=== PATIENT | male | born 1990 | race Caucasian/White ===

== ENCOUNTER 2018-06-28 20:34 | Emergency (ER) | payer OTHER ==
[2018-06-28] MEDS ORDERED: ALPRAZolam 1 MG TAB PO STA (20:59)
--- NOTE | 2018-06-28 21:06 | ED ---
General Adult HPI - General Source: patient Mode of arrival: ambulatory Limitations: no limitations <Oumar Ramachandran - Last Filed: 06/28/18 21:05> <Jorge Allen - Last Filed: 06/29/18 09:20> - General Chief complaint: Psychiatric Symptoms Stated complaint: Psych eval - History of Present Illness Initial comments: Dictation was produced using [employer] dictation software. please excuse any grammatical, word or spelling errors. Chief Complaint: 20-year-old male with past medical history of bipolar rahel presents with flight of ideas. History of Present Illness: Patient is a 28-year-old male past medical history of bipolar rahel presents with increased activity, flight of ideas and manic thoughts. Patient takes lithium regularly and Seroquel for control of his psychiatric disease. He states that today he's been feeling more pressure recently. Patient has been having thoughts of jerking wildly. Denies any visual or to hallucinations. No homicidal or suicidal ideation. Patient said he was drinking alcohol today. The ROS documented in this emergency department record has been reviewed and confirmed by me. Those systems with pertinent positive or negative responses have been documented in the HPI. All other systems are other negative and/or noncontributory. (Oumar Ramachandran) - Related Data Allergies Allergy/AdvReac Type Severity Reaction Status Date / Time No Known Allergies Allergy Verified 06/29/18 07:18 Review of Systems ROS Other: All systems not noted in ROS Statement are negative. <Oumar Ramachandran - Last Filed: 06/28/18 21:05> ROS Other: All systems not noted in ROS Statement are negative. <Jorge Allen - Last Filed: 06/29/18 09:20> ROS Statement: Those systems with pertinent positive or pertinent negative responses have been documented in the HPI. Past Medical History Past Medical History: No Reported History History of Any Multi-Drug Resistant Organisms: None Reported Past Surgical History: Appendectomy Additional Past Surgical History / Comment(s): lypoma removal Past Psychological History: Bipolar Smoking Status: Current every day smoker Past Alcohol Use History: Occasional Past Drug Use History: Marijuana <Oumar Ramachandran - Last Filed: 06/28/18 21:05> General Exam Limitations: no limitations <Oumar Ramachandran - Last Filed: 06/28/18 21:05> <Jorge Allen - Last Filed: 06/29/18 09:20> - General Exam Comments Initial Comments: PHYSICAL EXAM: General Impression: Alert and oriented x3, not in acute distress HEENT: Normocephalic atraumatic, extra-ocular movements intact, pupils equal and reactive to light bilaterally, mucous membranes moist. Cardiovascular: Heart regular rate and rhythm, S1&S2 audible, no murmurs, rubs or gallops Chest: Lungs clear to auscultation bilaterally, no rhonchi, no wheeze, no rales Abdomen: Bowel sounds present, abdomen soft, non-tender, non-distended, no organomegaly Musculoskeletal: Pulses present and equal in all extremities, no peripheral edema Motor: Power 5/5 bilaterally, no focal deficits noted Neurological: CN II-XII grossly intact, no focal motor or sensory deficits noted Skin: Intact with no visualized rashes Psych: Pressured speech, manic (Oumar Ramachandran) Course <Oumar Ramachandran - Last Filed: 06/28/18 21:05> <Jorge Allen - Last Filed: 06/29/18 09:20> Vital Signs 06/28/18 06/29/18 20:38 07:03 Temperature 98.2 F 98.3 F Pulse Rate 117 H 71 Respiratory 20 18 Rate Blood Pressure 158/87 119/60 O2 Sat by Pulse 98 97 Oximetry - Reevaluation(s) Reevaluation #1: 06/29/18 09:17 I did reevaluate the patient is awake alert oriented 3 he is not homicidal or suicidal. I did interview the patient and discussed the findings with him. I also did discuss the case with Dr. Bates from the [facility] in [place]. She also did discuss the findings interview the patient over the phone the patient does have an adequate supply of medication he has probably not been taking his lithium as directed he will be discharged and keep his follow-up appointment on the with his psychiatrist. Patient is in agreement with this. He does plan the avoid alcohol and take medication as directed. He will be discharged (Jorge Allen) Medical Decision Making <Oumar Ramachandran - Last Filed: 06/28/18 21:05> - Lab Data Result diagrams: 06/28/18 21:17 10/07/18 21:17 <Jorge Allen - Last Filed: 06/29/18 09:20> - Medical Decision Making ED course: 20-year-old male with past medical history of psychiatric disease presents with manic thoughts and grandiose ideation. On arrival shows heart rate of 117. Patient denies any drug use. Not suicidal homicidal. No visualized or hallucination. Patient appears to be showing signs of psychosis. Patient will need EPS evaluation. Patient denies any drug use. Presentation not consistent with toxidrome. No neuro deficits. (Oumar Ramachandran) - Lab Data Lab Results 06/28/18 06/28/18 06/28/18 Range/Units 21:17 21:17 21:17 WBC 8.6 (3.8-10.6) k/uL RBC 5.44 (4.30-5.90) m/uL Hgb 15.1 (13.0-17.5) gm/dL Hct 46.6 (39.0-53.0) % MCV 85.5 (80.0-100.0) fL MCH 27.8 (25.0-35.0) pg MCHC 32.5 (31.0-37.0) g/dL RDW 13.0 (11.5-15.5) % Plt Count 240 (150-450) k/uL Neutrophils % 52 % Lymphocytes % 34 % Monocytes % 7 % Eosinophils % 4 % Basophils % 1 % Neutrophils # 4.5 (1.3-7.7) k/uL Lymphocytes # 2.9 (1.0-4.8) k/uL Monocytes # 0.6 (0-1.0) k/uL Eosinophils # 0.4 (0-0.7) k/uL Basophils # 0.1 (0-0.2) k/uL Sodium 145 (137-145) mmol/L Potassium 4.4 (3.5-5.1) mmol/L Chloride 108 H (98-107) mmol/L Carbon Dioxide 27 (22-30) mmol/L Anion Gap 10 mmol/L BUN 10 (9-20) mg/dL Creatinine 0.91 (0.66-1.25) mg/dL Est GFR (CKD-EPI)AfAm >90 (>60 ml/min/1.73 sqM) Est GFR (CKD-EPI)NonAf >90 (>60 ml/min/1.73 sqM) Glucose 76 (74-99) mg/dL Calcium 9.4 (8.4-10.2) mg/dL TSH 2.260 (0.465-4.680) mIU/L Urine Color Urine Appearance (Clear) Urine pH (5.0-8.0) Ur Specific [place] (1.001-1.035) Urine Protein (Negative) Urine Glucose (UA) (Negative) Urine Ketones (Negative) Urine Blood (Negative) Urine Nitrite (Negative) Urine Bilirubin (Negative) Urine Urobilinogen (<2.0) mg/dL Ur Leukocyte Esterase (Negative) Urine Opiates Screen (NotDetected) Ur Oxycodone Screen (NotDetected) Urine Methadone Screen (NotDetected) Ur Propoxyphene Screen (NotDetected) Ur Barbiturates Screen (NotDetected) U Tricyclic Antidepress (NotDetected) Ur Phencyclidine Scrn (NotDetected) Ur Amphetamines Screen (NotDetected) U Methamphetamines Scrn (NotDetected) U Benzodiazepines Scrn (NotDetected) [place] <0.2 mmol/L Urine Cocaine Screen (NotDetected) U Marijuana (THC) Screen (NotDetected) Serum Alcohol mg/dL 06/28/18 06/28/18 06/29/18 Range/Units 22:20 22:22 06:45 WBC (3.8-10.6) k/uL RBC (4.30-5.90) m/uL Hgb (13.0-17.5) gm/dL Hct (39.0-53.0) % MCV (80.0-100.0) fL MCH (25.0-35.0) pg MCHC (31.0-37.0) g/dL RDW (11.5-15.5) % Plt Count (150-450) k/uL Neutrophils % % Lymphocytes % % Monocytes % % Eosinophils % % Basophils % % Neutrophils # (1.3-7.7) k/uL Lymphocytes # (1.0-4.8) k/uL Monocytes # (0-1.0) k/uL Eosinophils # (0-0.7) k/uL Basophils # (0-0.2) k/uL Sodium (137-145) mmol/L Potassium (3.5-5.1) mmol/L Chloride (98-107) mmol/L Carbon Dioxide (22-30) mmol/L Anion Gap mmol/L BUN (9-20) mg/dL Creatinine (0.66-1.25) mg/dL Est GFR (CKD-EPI)AfAm (>60 ml/min/1.73 sqM) Est GFR (CKD-EPI)NonAf (>60 ml/min/1.73 sqM) Glucose (74-99) mg/dL Calcium (8.4-10.2) mg/dL TSH (0.465-4.680) mIU/L Urine Color Light Yellow Urine Appearance Clear (Clear) Urine pH 5.5 (5.0-8.0) Ur Specific [place] 1.008 (1.001-1.035) Urine Protein Negative (Negative) Urine Glucose (UA) Negative (Negative) Urine Ketones Negative (Negative) Urine Blood Negative (Negative) Urine Nitrite Negative (Negative) Urine Bilirubin Negative (Negative) Urine Urobilinogen <2.0 (<2.0) mg/dL Ur Leukocyte Esterase Negative (Negative) Urine Opiates Screen Not Detected (NotDetected) Ur Oxycodone Screen Not Detected (NotDetected) Urine Methadone Screen Not Detected (NotDetected) Ur Propoxyphene Screen Not Detected (NotDetected) Ur Barbiturates Screen Not Detected (NotDetected) U Tricyclic Antidepress Not Detected (NotDetected) Ur Phencyclidine Scrn Not Detected (NotDetected) Ur Amphetamines Screen Not Detected (NotDetected) U Methamphetamines Scrn Not Detected (NotDetected) U Benzodiazepines Scrn Not Detected (NotDetected) [place] mmol/L Urine Cocaine Screen Not Detected (NotDetected) U Marijuana (THC) Screen Not Detected (NotDetected) Serum Alcohol <10 mg/dL Disposition <Oumar Ramachandran - Last Filed: 06/28/18 21:05> Is patient prescribed a controlled substance at d/c from ED?: No <Jorge Allen - Last Filed: 06/29/18 09:20> Clinical Impression: Rahel (monopolar) single episode or unspecified, Bipolar disorder Disposition: HOME SELF-CARE Condition: Good Instructions: Bipolar Disorder (ED) Additional Instructions: Keep your follow-up appointment at the 18th of this month. Return if needed. Avoid alcohol. Figure medications as directed. Referrals: [facility] [Primary Care Provider] - 1-2 days
[2018-06-28 21:37] LABS: Basophils # (A) 0.1 k/uL (0-0.2); Basophils % (A) 1 %; Eosinophils # (A) 0.4 k/uL (0-0.7); Eosinophils % (A) 4 %; HCT 46.6 % (39.0-53.0); HGB 15.1 gm/dL (13.0-17.5); Lymphocytes # (A) 2.9 k/uL (1.0-4.8); Lymphocytes % (A) 34 %; MCH 27.8 pg (25.0-35.0); MCHC 32.5 g/dL (31.0-37.0); MCV 85.5 fL (80.0-100.0); Mean Platelet Volume 7.3; Monocytes # (A) 0.6 k/uL (0-1.0); Monocytes % (A) 7 %; Neutrophils # (A) 4.5 k/uL (1.3-7.7); Neutrophils % (A) 52 %; Platelet Count 240 k/uL (150-450); RBC 5.44 m/uL (4.30-5.90); WBC 8.6 k/uL (3.8-10.6)
[2018-06-28 21:46] LABS: Anion Gap 10 mmol/L; Blood Urea Nitrogen 10 mg/dL (9-20); Calcium 9.4 mg/dL (8.4-10.2); Carbon Dioxide 27 mmol/L (22-30); Chloride 108 mmol/L (98-107); Glucose 76 mg/dL (74-99); Potassium 4.4 mmol/L (3.5-5.1); Sodium 145 mmol/L (137-145)
[2018-06-28 22:50] LABS: Amphetamine Screen,Urine Not Detected (NotDetected); Barbiturate Screen,Urine Not Detected (NotDetected); Benzodiazepines Screen,Urine Not Detected (NotDetected); Cocaine Screen,Urine Not Detected (NotDetected); Methadone Screen, Urine Not Detected (NotDetected); Opiate Screen,Urine Not Detected (NotDetected); Oxycodone Screen, Urine Not Detected (NotDetected); Phencyclidine Screen,Urine Not Detected (NotDetected); Tricyclic Antidepressant,Urine Not Detected (NotDetected); Urn Cannabinoid Scrn Not Detected (NotDetected)
[2018-06-29 02:19] LABS: Appearance,Urine Clear (Clear); Bilirubin,Urine Negative (Negative); Blood,Urine Negative (Negative); Color,Urine Light Yellow; Glucose,Urine (UA) Negative (Negative); Ketones,Urine Negative (Negative); Leukocyte Esterase,Urine Negative (Negative); Nitrite,Urine Negative (Negative); PH, Urine 5.5 (5.0-8.0); Protein,Urine Negative (Negative); Specific Gravity,Urine 1.008 (1.001-1.035); Urobilinogen,Urine <2.0 mg/dL (<2.0)
[2018-06-29 02:33] LABS: Lithium <0.2 mmol/L
[2018-06-29 07:05] VITALS: PULSE 71
[2018-06-29 10:00] VITALS: BP 116/62; RESP 17; TEMP 98.7
== END 2018-06-29 09:59 | disposition home or self-care (01) ==
LOC: EC 20:34
DX: F30.2 Manic episode, severe with psychotic symptoms (principal); F17.200 Nicotine dependence, unspecified, uncomplicated
CPT/HCPCS: 36415; 80048; 80178; 80306; 80320; 81003; 82075; 84443; 85025; 93005; 99284

== ENCOUNTER 2021-10-21 13:44 | Emergency (ER) | payer OTHER ==
--- NOTE | 2021-10-21 14:27 | ED ---
Psych HPI - General Chief Complaint: Psychiatric Symptoms Stated Complaint: Mental Health Time Seen by Provider: 10/21/21 13:58 Source: patient, RN notes reviewed Mode of arrival: ambulatory Limitations: no limitations - History of Present Illness Initial Comments: 31-year-old male presents emergency Department with chief complaint of severe depression, suicidal ideation. Patient states last 2 weeks been having worsening symptoms. He does have known bipolar disorder which is on multiple medications for. Patient does see psychiatrist, therapist. Patient states she's been waking up every morning and he states his first day is to harm himself. He states she's attempted suicide in the past. Patient has no physical legs. Patient states has changed recently as he is attempting to go to school when he states is not that stressed. - Related Data Home Medications Medication Instructions Recorded Confirmed [place] Carbonate 300 mg PO TID 06/29/18 06/29/18 Magnesium 200 mg PO DAILY 06/29/18 06/29/18 Melatonin 1 mg PO HS 06/29/18 06/29/18 Propranolol [Inderal] 20 mg PO TID PRN 06/29/18 06/29/18 Zinc 50 mg PO DAILY 06/29/18 06/29/18 buPROPion HCL [Wellbutrin XL] 300 mg PO DAILY 06/29/18 06/29/18 Allergies Allergy/AdvReac Type Severity Reaction Status Date / Time No Known Allergies Allergy Verified 10/21/21 13:58 Review of Systems ROS Statement: Those systems with pertinent positive or pertinent negative responses have been documented in the HPI. ROS Other: All systems not noted in ROS Statement are negative. Past Medical History Past Medical History: No Reported History History of Any Multi-Drug Resistant Organisms: None Reported Past Surgical History: Appendectomy Additional Past Surgical History / Comment(s): lypoma removal Past Psychological History: Bipolar Smoking Status: Vaper Past Alcohol Use History: Occasional Past Drug Use History: Marijuana General Exam Limitations: no limitations General appearance: alert, in no apparent distress Head exam: Present: atraumatic, normocephalic, normal inspection Eye exam: Present: normal appearance, PERRL, EOMI. Absent: scleral icterus, conjunctival injection, periorbital swelling Neck exam: Present: normal inspection, full ROM. Absent: tenderness, meningismus, lymphadenopathy Respiratory exam: Present: normal lung sounds bilaterally. Absent: respiratory distress, wheezes, rales, rhonchi, stridor Cardiovascular Exam: Present: regular rate, normal rhythm, normal heart sounds. Absent: systolic murmur, diastolic murmur, rubs, gallop, clicks GI/Abdominal exam: Present: soft, normal bowel sounds. Absent: distended, tenderness, guarding, rebound, rigid Neurological exam: Present: alert, oriented X3 Psychiatric exam: Present: depressed, suicidal ideation Course Vital Signs 10/21/21 13:54 Temperature 98 F Pulse Rate 75 Respiratory 16 Rate Blood Pressure 150/86 O2 Sat by Pulse 96 Oximetry Medical Decision Making - Medical Decision Making Patient was evaluated by psychiatric services. Patient will be transferred to [place]. Disposition Clinical Impression: Depression, Suicidal ideation Disposition: TRANSFER TO PSYCH HOSP/UNIT Condition: Stable Referrals: None,Stated [REFERRING] - 1-2 days
[2021-10-21 15:25] LABS: Basophils # (A) 0.1 k/uL (0-0.2); Basophils % (A) 1 %; Eosinophils # (A) 0.4 k/uL (0-0.7); Eosinophils % (A) 4 %; HCT 45.3 % (39.0-53.0); HGB 15.7 gm/dL (13.0-17.5); Lymphocytes % (A) 22 %; MCH 29.5 pg (25.0-35.0); MCHC 34.6 g/dL (31.0-37.0); MCV 85.3 fL (80.0-100.0); Monocytes # (A) 0.5 k/uL (0-1.0); Monocytes % (A) 5 %; Neutrophils # (A) 6.1 k/uL (1.3-7.7); Neutrophils % (A) 66 %; Platelet Count 236 k/uL (150-450); RBC 5.31 m/uL (4.30-5.90); RDW 12.8 % (11.5-15.5); WBC 9.1 k/uL (3.8-10.6)
[2021-10-21 15:38] LABS: Appearance,Urine Clear (Clear); Bilirubin,Urine Negative (Negative); Blood,Urine Negative (Negative); Color,Urine Light Yellow; Glucose,Urine (UA) Negative (Negative); Ketones,Urine Negative (Negative); Leukocyte Esterase,Urine Small (Negative); Nitrite,Urine Negative (Negative); Protein,Urine Negative (Negative); RBC,Urine <1 /hpf (0-5); Specific Gravity,Urine 1.007 (1.001-1.035); Squamous Epithelial Cell,Urine <1 /hpf (0-4); Urobilinogen,Urine <2.0 mg/dL (<2.0); WBC,Urine 3 /hpf (0-5)
[2021-10-21 15:42] LABS: ALT 23 U/L (4-49); AST 26 U/L (17-59); African American GFR (CKD) >90 (>60 ml/min/1.73 sqM); Albumin 4.7 g/dL (3.5-5.0); Alkaline Phosphatase 67 U/L (38-126); Anion Gap 7 mmol/L; Blood Urea Nitrogen 12 mg/dL (9-20); Calcium 9.8 mg/dL (8.4-10.2); Carbon Dioxide 24 mmol/L (22-30); Chloride 106 mmol/L (98-107); Glucose 86 mg/dL (74-99); Non-African American GFR(CKD) >90 (>60 ml/min/1.73 sqM); Potassium 4.1 mmol/L (3.5-5.1); Sodium 137 mmol/L (137-145); Total Bilirubin 0.9 mg/dL (0.2-1.3); Total Protein 7.6 g/dL (6.3-8.2)
[2021-10-21 15:55] LABS: Lithium 0.7 mmol/L
[2021-10-21 16:02] LABS: Amphetamine Screen,Urine Not Detected (NotDetected); Barbiturate Screen,Urine Not Detected (NotDetected); Benzodiazepines Screen,Urine Not Detected (NotDetected); Cocaine Screen,Urine Not Detected (NotDetected); Methadone Screen, Urine Not Detected (NotDetected); Opiate Screen,Urine Not Detected (NotDetected); Oxycodone Screen, Urine Not Detected (NotDetected); Phencyclidine Screen,Urine Not Detected (NotDetected); Tricyclic Antidepressant,Urine Not Detected (NotDetected); Urn Cannabinoid Scrn Detected (NotDetected)
[2021-10-21] MEDS: buPROPion 100 MG TAB PO SCH (20:11)
[2021-10-21] MEDS ORDERED: OLANZapine 10 MG TAB PO SCH (21:00)
[2021-10-21] MEDS ORDERED: LITHIUM CARBONATE 300 MG CAP PO SCH (21:00)
[2021-10-22 06:53] VITALS: TEMP 97.8
[2021-10-22] MEDS: buPROPion 100 MG TAB PO SCH (08:50)
[2021-10-22 08:59] VITALS: BP 133/79; PULSE 76; RESP 18
[2021-10-22] MEDS ORDERED: LITHIUM CARBONATE 300 MG CAP PO SCH (09:00)
== END 2021-10-22 09:00 ==
LOC: EC 13:44
DX: F32.A Depression, unspecified (principal); R45.851 Suicidal ideations; F17.290 Nicotine dependence, other tobacco product, uncomplicated; Z20.822 Contact with and (suspected) exposure to COVID-19
CPT/HCPCS: 36415; 80053; 80178; 80306; 81001; 82075; 85025; 87635; 93005; 99285

== ENCOUNTER → 2024-08-20 | Outpatient (CLI) | payer OTHER ==
--- NOTE | 2024-08-21 06:46 | MR ---
EXAMINATION TYPE: MR knee LT wo con DATE OF EXAM: 08/20/2024 3:18 PM COMPARISON: None. CLINICAL INDICATION: Male, 34 years old with history of M25.562 PAIN IN LEFT KNEE, left knee pain for 5 months due to fall. IV Contrast: cc (None if empty) TECHNIQUE: Multiplanar, multisequence imaging of the left knee is performed without IV contrast. FINDINGS: There is no bone contusion or fracture. There is no joint effusion. The articular cartilages are well preserved and there is no osteochondral defect. There is no meniscal tear. There is possibly a mild strain of the anterior cruciate ligament but intact fibers are clearly ident ified. The posterior cruciate ligament and both the medial and lateral collateral ligaments are intac t.. The quadriceps and patellar tendons are intact. The anterior fat pads are normal. There is a 13.5 mm ganglion cyst adjacent to the posterior cruciate ligament.. IMPRESSION: 1. No bone contusion, fracture or osteochondral defect. 2. No joint effusion. 3. Possible mild strain of the ACL. 4. Ganglion cyst of the posterior cruciate ligament 5. No meniscal injury [facility], , 08/21/2024 6:43 AM
== END | disposition home or self-care (01) ==
LOC: RADMRIMAIN 14:46
PROVIDERS: ATTEND Family Medicine
DX: M67.462 Ganglion, left knee (principal)